=== PATIENT | male | born 1970 | race Caucasian/White ===

== ENCOUNTER 2021-05-09 12:10 | Outpatient (REF) | payer MEDICARE, SELFPAY ==
--- NOTE | ~2021-05-09 | XR_ITS ---
EXAMINATION: XR KNEE, RIGHT CLINICAL INFORMATION: Right knee pain COMPARISON: None TECHNIQUE: Four views of the right knee. FINDINGS: Bones and soft tissues are normal. No fracture or joint effusion. Alignment is anatomic. Joint spaces are well maintained. No abnormal soft tissue calcification. XR/XR knee RT 4V IMPRESSION: Normal right knee.
== END 2021-05-09 12:11 | disposition home or self-care (01) ==
LOC: HO.HMGCX 12:10
PROVIDERS: PCP Family Medicine; Visit Provider Hospitalist
DX: M25.561 Pain in right knee (principal)
CPT/HCPCS: 73564